=== PATIENT | female | born 1985 | race African-American/Black ===

== ENCOUNTER 2019-01-19 01:48 | Emergency (ER) | payer MEDICAID ==
[~2019-01-19] VITALS: Ht 162.6 cm; Wt 5.9 kg
--- NOTE | 2019-01-19 02:27 | Emergency Room Report ---
History of Present Illness General Chief Complaint: Lower Extremity Injury Source: Patient Present Illness HPI Is a 33-year-old female with no past medical history. She presents with chief complaint of toe pain. She stopped her left foot on a tree branch while walking. Planes of pain over the second and third toe. There is some bleeding with the skin breakdown. No other injury. Pain is 7 out of 10. Worse with walking. Better with rest. She was just discharged from another ER. Allergies: Coded Allergies: No Known Allergies (Unverified , 01/19/19) Patient History Past Medical History: see triage record, old chart reviewed Past Surgical History: none Pertinent Family History: none Social History: Denies: smoking Last Menstrual Period: 12/30/18 Now: No Immunizations: other Reviewed Nursing Documentation: PMH: Agreed; PSxH: Agreed Nursing Documentation-PMH Past Medical History: No Stated History Review of Systems Eye: Denies: eye pain, blurred vision ENT: Denies: ear pain, nose congestion, throat swelling Respiratory: Denies: cough, shortness of breath Cardiovascular: Denies: chest pain, palpitations Gastrointestinal: Denies: abdominal pain, diarrhea, nausea, vomiting Musculoskeletal: Denies: back pain, joint pain Skin: Denies: rash Neurological: Denies: headache, numbness Endocrine: Denies: increased thirst, increased urine Hematologic/Lymphatic: Denies: easy bruising All Other Systems: negative except mentioned in HPI Physical Exam Vital Signs Date Time Temp Pulse Resp B/P (MAP) Pulse Ox O2 Delivery O2 Flow Rate FiO2 01/19/19 01:54 98.1 100 18 106/76 (86) 98 Room Air Vitals normal Sp02 EP Interpretation: reviewed, normal General Appearance: well appearing, no apparent distress, alert Head: normocephalic, atraumatic Eyes: bilateral eye PERRL, bilateral eye EOMI ENT: hearing grossly normal, normal pharynx Neck: full range of motion, supple, no meningismus Respiratory: chest non-tender, lungs clear, normal breath sounds Cardiovascular #1: regular rate, rhythm, no murmur Gastrointestinal: normal bowel sounds, non tender, no mass, no organomegaly, no bruit, non-distended Musculoskeletal: back normal, gait/station normal, normal range of motion, other - Left foot: Abrasion to the dorsum of second and third toe. Psychiatric: mood/affect normal Medical Decision Making Diagnostic Impression: Primary Impression: Abrasion, toe without infection ER Course Patient with abrasion of the toe. No fracture dislocation. Will discharge home. Other X-Ray Diagnostic Results Other X-Ray Diagnostic Results : X-Ray ordered: Foot x-rays, left # of Views/Limited Vs Complete: 3 View Indication: Pain EP Interpretation: Yes Interpretation: no dislocation, no soft tissue swelling, no fractures Impression: No acute disease Electronically Signed by: Mohinder Underwood MD Last Vital Signs Date Time Temp Pulse Resp B/P (MAP) Pulse Ox O2 Delivery O2 Flow Rate FiO2 01/19/19 01:54 98.1 100 18 106/76 (86) 98 Room Air Status: improved Disposition: HOME, SELF-CARE Condition: Stable Referrals: NOT CHOSEN IPA/,REFERRING (PCP) Additional Instructions: Follow-up with your doctor in 7 days. Return if worse. Mohinder Underwood MD Jan 19, 2019 02:27
[2019-01-19 02:35] VITALS: BP 110/73
[2019-01-19] MEDS ORDERED: MECLIZINE HCL25 MG ORAL (06:38)
--- NOTE | 2019-01-19 12:00 | Diagnostic Imaging Report ---
Indication: Pain in third and fourth toes after stubbing them Technique: 3 views left foot Comparison: none Findings: No acute fractures. No dislocations. The joint spaces are preserved. Impression: Negative
== END 2019-01-19 02:35 | disposition home or self-care (01) ==
LOC: EMR 02:11
DX: S90.415A Abrasion, left lesser toe(s), initial encounter (principal); W22.09XA Striking against other stationary object, initial encounter; Y93.01 Activity, walking, marching and hiking; Y92.9 Unspecified place or not applicable
CPT/HCPCS: 99283

== ENCOUNTER 2019-01-19 06:24 | Emergency (ER) | payer MEDICAID ==
[~2019-01-19] VITALS: Ht 162.6 cm; Wt 63.5 kg
--- NOTE | 2019-01-19 06:37 | Emergency Room Report ---
History of Present Illness General Chief Complaint: nausea Present Illness HPI Patient is a 33-year-old female who presented after increased spinning sensation. Patient reports having increased dizziness associate with nausea. She reports having some increased fullness to her right ear. She denies any fever. She denies any vomiting. She denies any recent trauma. Patient states that she is a smoker. She denies any significant tenderness. Allergies: Coded Allergies: No Known Allergies (Unverified , 01/19/19) Patient History Reviewed Nursing Documentation: PMH: Agreed; PSxH: Agreed Review of Systems All Other Systems: negative except mentioned in HPI Physical Exam General Appearance: well appearing, no apparent distress, alert, GCS 15, non- toxic Head: normocephalic, atraumatic ENT: hearing grossly normal, normal voice Neck: full range of motion, supple Respiratory: no respiratory distress, speaking full sentences Cardiovascular #1: normal inspection, normal peripheral pulses, regular rate, rhythm Gastrointestinal: normal inspection Musculoskeletal: normal inspection, no calf tenderness Neurologic: normal inspection, alert, oriented x3, responsive, para professional III-XII nml as tested, normal gait Psychiatric: mood/affect normal Skin: normal inspection, no rash Medical Decision Making Diagnostic Impression: Primary Impression: Peripheral vertigo ER Course . Patient presented for dizziness. Differential diagnosis include was not limited to peripheral vertigo, CVA, labyrinthitis, mastoiditis among others. Patient has a benign exam and does not appear to require any further imaging or laboratory testing at this time. Patient was noted to have recently been seen for some discomfort to her foot. Patient does not appear to be in any acute distress. She is given Zofran as well as meclizine. Patient appears be stable for outpatient management. She will be given prescription for meclizine. Status: improved Disposition: HOME, SELF-CARE Condition: Stable Luke Alegria MD Jan 19, 2019 06:37
[2019-01-19] MEDS ORDERED: MECLIZINE HCL25 MG ORAL (06:38)
[2019-01-19] MEDS ORDERED: Meclizine 25mg tab ORAL ONE (06:45)
[2019-01-19 06:49] VITALS: BP 105/70
[2019-01-19 06:52] VITALS: BP 105/70
== END 2019-01-19 06:57 | disposition home or self-care (01) ==
LOC: EMR 06:44
DX: H81.399 Other peripheral vertigo, unspecified ear (principal)
CPT/HCPCS: 99282